=== PATIENT | male | born 1950 | race Caucasian/White ===

== ENCOUNTER 2016-09-21 21:50 | Inpatient (IN) | payer MEDICARE, MEDICAID ==
[2016-09-21] MEDS: BACITRACIN TOP OINT 15 GM TUBE TOP SCH (01:40)
[2016-09-21 21:40] VITALS: O2SAT 96
[2016-09-21] MEDS ORDERED: DIPHTH/TETANUS/ACEL PERTUSSIS (BOOSTER) 0.5 ML VIAL/PFS IM ONE ×2 (21:59→22:24)
[2016-09-21] MEDS ORDERED: ceFAZolin 2 GM PREMIX 50 ML ONE (21:59)
[2016-09-21] MEDS ORDERED: LIDOCAINE HCL 1% 50 ML VIAL INFIL ONE (22:15)
[2016-09-21] MEDS ORDERED: ceFAZolin 2 GM PREMIX 50 ML IV STA (22:24)
--- NOTE | 2016-09-21 22:25 | RADRPT ---
EXAM DATE/TIME: 09/21/2016 22:13 [facility] COMPARISON: No previous studies available for comparison. INDICATIONS : Trauma alert; fall from standing position. RADIATION DOSE: 53.40 CTDIvol (mGy) MEDICAL HISTORY : Non-responsive. SURGICAL HISTORY : Non-responsive. ENCOUNTER: Initial ACUITY: 1 day PAIN SCALE: Non-responsive LOCATION: cranial TECHNIQUE: Multiple contiguous axial images were obtained of the head. Using automated exposure control and adj ustment of the mA and/or kV according to patient size, radiation dose was kept as low as reasonably a chievable to obtain optimal diagnostic quality images. FINDINGS: CEREBRUM: The ventricles are normal for age. No evidence of midline shift, mass lesion, hemorrhage or acute in farction. No extra-axial fluid collections are seen. POSTERIOR FOSSA: The cerebellum and brainstem are intact. The 4th ventricle is midline. The cerebellopontine angle i s unremarkable. EXTRACRANIAL: The visualized portion of the orbits is intact. SKULL: The calvaria is intact. No evidence of skull fracture. CONCLUSION: Negative noncontrast head CT. No bleed or other acute intracranial abnormality. Viot Yanez MD on September 21, 2016 at 22:23 Board Certified Radiologist. This report was verified electronically.
--- NOTE | 2016-09-21 22:26 | RADRPT ---
EXAM DATE/TIME: 09/21/2016 21:57 [facility] COMPARISON: No previous studies available for comparison. INDICATIONS : Trauma alert. Fall from a standing position. MEDICAL HISTORY : None. SURGICAL HISTORY : None. ENCOUNTER: Initial ACUITY: 1 day PAIN SCORE: 10/10 LOCATION: Right shoulder. FINDINGS: No fracture or subluxation seen in the right shoulder. 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 CONCLUSION: Intact right shoulder. Vito Yanez MD on September 21, 2016 at 22:24 Board Certified Radiologist. This report was verified electronically.
[2016-09-21 22:28] LABS: I-STAT POTASSIUM 3.6 MMOL/L (3.5-4.9)
[2016-09-21 22:29] LABS: AUTOMATED NEUTROPHIL # 6.6 TH/MM3 (1.8-7.7); BASOPHIL # 0.1 TH/MM3 (0-0.2); BASOPHIL % 0.5 % (0.0-2.0); EOSINOPHIL # 0.3 TH/MM3 (0-0.4); EOSINOPHIL % 2.7 % (0.0-4.0); HEMATOCRIT 36.6 % (39.0-51.0); HEMO FLAGS DIFF FINAL; LYMPH % 22.2 % (9.0-44.0); LYMPHOCYTE # 2.3 TH/MM3 (1.0-4.8); MEAN CELL VOLUME 98.3 FL (80.0-100.0); MEAN CORPUSCULAR HEMOGLOBIN 34.6 PG (27.0-34.0); MEAN CORPUSCULAR HGB CONC 35.2 % (32.0-36.0); MONO % 9.9 % (0.0-8.0); NEUT % 64.7 % (16.0-70.0); PLATELET COUNT 193 TH/MM3 (150-450); RED BLOOD COUNT 3.72 MIL/MM3 (4.50-5.90); RED CELL DISTRIBUTION WIDTH 13.9 % (11.6-17.2); WHITE BLOOD COUNT 10.1 TH/MM3 (4.0-11.0)
[2016-09-21] MEDS ORDERED: IOHEXOL 350 MG/ML 10 ML VIAL (for RAD DIAG) IV ONE (22:32)
[2016-09-21 22:37] LABS: APTT (PATIENT) 24.7 SEC (24.3-30.1); PROTHROMBIN TIME - PATIENT 11.4 SEC (9.8-11.6)
--- NOTE | 2016-09-21 22:38 | RADRPT ---
EXAM DATE/TIME: 09/21/2016 22:13 [facility] COMPARISON: No previous studies available for comparison. INDICATIONS : Trauma alert; fall from standing position. RADIATION DOSE: 17.84 CTDIvol (mGy) MEDICAL HISTORY : Non-responsive. SURGICAL HISTORY : Non-responsive. ENCOUNTER: Initial ACUITY: 1 day PAIN SCALE: Non-responsive LOCATION: neck TECHNIQUE: Volumetric scanning of the cervical spine was performed. Multiplanar reconstructions in the sagittal, coronal and oblique axial planes were performed. Using automated exposure control and adjustment o f the mA and/or kV according to patient size, radiation dose was kept as low as reasonably achievable to obtain optimal diagnostic quality images. FINDINGS: No subluxation seen of the cervical spine. Vertebral bodies have normal height. Nonacute-appearing fr agmentation and/or hypertrophic bone seen of the tip of the odontoid. There is a suspected fracture o f the base of the odontoid that appears old and substantially healed. Severe disc space narrowing with bony bridging seen at C5/C6 and C6/C7. Large anterior syndesmophytes are seen at C4/C5. No prevertebral soft tissue swelling demonstrated. CONCLUSION: Old/chronic findings as above. No acute fracture or subluxation seen of the cervical spine. Vito Yanez MD on September 21, 2016 at 22:35 Board Certified Radiologist. This report was verified electronically.
--- NOTE | 2016-09-21 22:46 | RADRPT ---
EXAM DATE/TIME: 09/21/2016 22:18 [facility] COMPARISON: No previous studies available for comparison. INDICATIONS : Trauma alert; fall from standing position. IV CONTRAST: 95 cc Omnipaque 350 (iohexol) IV RADIATION DOSE: 8.07 CTDIvol (mGy) ; Combined studies - Thorax/Abdomen/Pelvis MEDICAL HISTORY : Non-responsive. SURGICAL HISTORY : Non-responsive. ENCOUNTER: Initial ACUITY: 1 day PAIN SCALE: Non-responsive LOCATION: cranial TECHNIQUE: Volumetric scanning of the chest was performed. Using automated exposure control and adjustment of t he mA and/or kV according to patient size, radiation dose was kept as low as reasonably achievable to obtain optimal diagnostic quality images. FINDINGS: LUNGS: Trace bibasilar atelectasis. There is mild emphysema. PLEURA: No hemothorax. No pneumothorax. MEDIASTINUM: There is no adenopathy. Heart size within normal limits. There is coronary artery calcification. AXILLAE: Within normal limits. No lymphadenopathy. SKELETAL: There are old, healed left rib fractures. No acute fracture seen of the visualized osseous structures . MISCELLANEOUS: The visualized upper abdominal organs demonstrate no acute abnormality. CONCLUSION: No evidence of acute thoracic injury. Trace atelectasis and chronic findings as above. Vito Yanez MD on September 21, 2016 at 22:42 Board Certified Radiologist. This report was verified electronically.
--- NOTE | 2016-09-21 22:48 | RADRPT ---
EXAM DATE/TIME: 09/21/2016 22:18 [facility] COMPARISON: No previous studies available for comparison. INDICATIONS : Trauma alert. Fall from standing position. IV CONTRAST: 95 cc Omnipaque 350 (iohexol) IV ORAL CONTRAST: No oral contrast ingested. RADIATION DOSE: 8.07 CTDIvol (mGy) ; Combined studies - Thorax/Abdomen/Pelvis MEDICAL HISTORY : Non-responsive. SURGICAL HISTORY : Non-responsive. ENCOUNTER: Initial ACUITY: 1 day PAIN SCALE: Non-responsive LOCATION: Abdomen TECHNIQUE: Volumetric scanning of the abdomen and pelvis was performed. Using automated exposure control and ad justment of the mA and/or kV according to patient size, radiation dose was kept as low as reasonably achievable to obtain optimal diagnostic quality images. FINDINGS: LOWER LUNGS: The visualized lower lungs are clear. LIVER: Homogeneous density without lesion. There is no dilation of the biliary tree. No calcified gallston es. SPLEEN: Normal size without lesion. PANCREAS: Within normal limits. KIDNEYS: Normal in size and shape. There is no mass, stone or hydronephrosis. ADRENAL GLANDS: Within normal limits. VASCULAR: There is no aortic aneurysm. BOWEL/MESENTERY: The stomach, small bowel, and colon demonstrate no acute abnormality. There is no free intraperitone al air or fluid. ABDOMINAL WALL: Within normal limits. RETROPERITONEUM: There is no lymphadenopathy. BLADDER: No wall thickening or mass. REPRODUCTIVE: Within normal limits. INGUINAL: There is no lymphadenopathy or hernia. MUSCULOSKELETAL: No fracture seen of the visualized osseous structures. Degenerative changes are seen of the lumbar sp ine and both sacroiliac joints. CONCLUSION: No visceral organ injury or other acute abnormality demonstrated. Vito Yanez MD on September 21, 2016 at 22:46 Board Certified Radiologist. This report was verified electronically.
[2016-09-21] MEDS ORDERED: SODIUM CHLOR 0.9% 1000 ML INJ 1,000 ML IV ONE (23:00)
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
--- NOTE | 2016-09-21 23:11 | PD ---
Physical Exam Date Seen by Provider: Sep 21, 2016 Time Seen by Provider: 23:09 Narrative Trauma alert that presents to the ED for evaluation of laceration to the head. Please refer to my attendings note for history and physical. Data Data Orders I-Stat Profile (09/21/16 21:53) I-Stat Creatinine (09/21/16 21:53) Complete Blood Count With Diff (09/21/16 21:53) Prothrombin Time / Inr (Pt) (09/21/16 21:53) Act Partial Throm Time (Ptt) (09/21/16 21:53) Type And Screen (09/21/16 21:53) Ct Brain W/O Iv Contrast(Rout) (09/21/16 21:53) Ct Cerv Spine W/O Contrast (09/21/16 21:53) Ct Abd/Pel W Iv Contrast(Rout) (09/21/16 21:53) Ct Thorax/ Chest W Iv Contrast (09/21/16 21:53) Iv Access Insert/Monitor (09/21/16 21:53) Ecg Monitoring (09/21/16 21:53) Oximetry (09/21/16 21:53) Oxygen Administration (09/21/16 21:53) Cefazolin 2 Gm Premix (Ancef 2 Gm Premix (09/21/16 21:59) Wvyt-Ply-Kqxcnv (Booster) Inj (Boostrix (09/21/16 21:59) Shoulder, Limited(2vws) (09/21/16 ) Fentanyl Inj (Fentanyl Inj) (09/21/16 22:04) Wound Care (09/21/16 22:08) Lidocaine 1% Inj (50 Ml) (Xylocaine 1% I (09/21/16 22:15) Cefazolin 2 Gm Premix (Ancef 2 Gm Premix (09/21/16 22:24) Agty-Fur-Ewixcj (Booster) Inj (Boostrix (09/21/16 22:24) Iohexol 350 Inj (Omnipaque 350 Inj) (09/21/16 22:32) Admit Order (Ed Use Only) (09/21/16 22:52) Labs Laboratory Tests Test 09/21/16 21:50 White Blood Count 10.1 TH/MM3 Red Blood Count 3.72 MIL/MM3 Hemoglobin 12.9 GM/DL Bedside Hemoglobin 13.3 G/DL Hematocrit 36.6 % Bedside Hematocrit 39.0 % Mean Corpuscular Volume 98.3 FL Mean Corpuscular Hemoglobin 34.6 PG Mean Corpuscular Hemoglobin 35.2 % Concent Red Cell Distribution Width 13.9 % Platelet Count 193 TH/MM3 Mean Platelet Volume 8.0 FL Neutrophils (%) (Auto) 64.7 % Lymphocytes (%) (Auto) 22.2 % Monocytes (%) (Auto) 9.9 % Eosinophils (%) (Auto) 2.7 % Basophils (%) (Auto) 0.5 % Neutrophils # (Auto) 6.6 TH/MM3 Lymphocytes # (Auto) 2.3 TH/MM3 Monocytes # (Auto) 1.0 TH/MM3 Eosinophils # (Auto) 0.3 TH/MM3 Basophils # (Auto) 0.1 TH/MM3 CBC Comment DIFF FINAL Differential Comment Prothrombin Time 11.4 SEC Prothromb Time International 1.0 RATIO Ratio Activated Partial 24.7 SEC Thromboplast Time Bedside Sodium 124 MMOL/L Bedside Potassium 3.6 MMOL/L Bedside Chloride 86 MMOL/L Bedside Blood Urea Nitrogen 4 MG/DL Bedside Creatinine 0.9 MG/DL Bedside Glucose 80 MG/DL Blood Type A POSITIVE Antibody Screen NEGATIVE [facility]DM Medical Record Reviewed: Yes Supervised Visit with LEONEL: No Procedures Procedure Narrative LACERATION LOCATION: Right forehead LENGTH: 8 cm NUMBER OF STITCHES/JENNI: 11 sutures REPAIR: The area of the laceration was prepped with Betadine and sterilely draped. The laceration was infiltrated with 1% xylocaine. The wound was copiously irrigated and explored without evidence of foreign body, tendon injury or neurovascular injury. The wound was closed using 4-0 prolene. This was a 1 layer repair. A sterile dressing was applied. The patient was advised to keep the dressing clean and dry. Patient tolerated the procedure well. LACERATION LOCATION: left eyebrow LENGTH: 4 cm NUMBER OF STITCHES/JENNI: 10 sutures REPAIR: The area of the laceration was prepped with Betadine and sterilely draped. The laceration was infiltrated with 1% xylocaine. The wound was copiously irrigated and explored without evidence of foreign body, tendon injury or neurovascular injury. The wound was closed using 4-0 prolene. This was a 1 layer repair. A sterile dressing was applied. The patient was advised to keep the dressing clean and dry. Patient tolerated the procedure well. Diagnosis Primary Impression: Acute alcohol intoxication Qualified Code: F10.120 - Acute alcohol intoxication, uncomplicated Additional Impressions: Hyponatremia Head injury Qualified Code: S09.90XA - Head injury, initial encounter Fall Qualified Code: W19.XXXA - Fall, initial encounter Laceration of forehead, complicated Qualified Code: S01.81XA - Laceration of forehead, complicated, initial encounter Cervical strain, acute Qualified Code: S16.1XXA - Cervical strain, acute, initial encounter Ever Yoder Sep 21, 2016 23:11
[2016-09-21] MEDS ORDERED: ENALAPRILAT 1.25 MG/ML VIAL IV PRN (23:15)
[2016-09-21] MEDS ORDERED: CHLORHEXIDINE GLUCONATE 2 % 1 PACK (2 CLOTHS) TOP PRN (23:15)
[2016-09-21] MEDS ORDERED: ONDANSETRON HCL 4 MG/2 ML VIAL IV PRN (23:15)
[2016-09-21] MEDS ORDERED: MISCELLANEOUS NURSING INFORMATION XX SCH (23:15)
[2016-09-21] MEDS ORDERED: SODIUM CHLORIDE 0.9% FLUSH 5 ML FLUSH IVF PRN (23:15)
[2016-09-21] MEDS ORDERED: MAGNESIUM HYDROXIDE SUSP 30 ML CUP PO PRN (23:15)
[2016-09-21] MEDS ORDERED: ACETAMINOPHEN 325 MG TAB PO PRN (23:15)
[2016-09-21] MEDS ORDERED: METHOCARBAMOL 500 MG TAB PO PRN (23:15)
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
[2016-09-22] VITALS (7 sets, daily range): BP systolic 90–125; BP diastolic 57–68; PULSE 60–84; RESP 14–20; TEMP 97.5–97.8; O2SAT 95–99
[2016-09-22] MEDS: ENOXAPARIN SODIUM 30 MG/0.3 ML SYRINGE SQ SCH ×2 (00:15→12:01)
[2016-09-22] MEDS: SODIUM CHLOR 0.9% 1000 ML INJ 1,000 ML IV SCH ×2 (01:40→09:21)
[2016-09-22] MEDS ORDERED: CHLORHEXIDINE GLUCONATE 2 % 1 PACK (2 CLOTHS) TOP SCH (04:00)
[2016-09-22 06:27] LABS: BICARBONATE 23.4 MEQ/L (21.0-32.0); POTASSIUM 3.7 MEQ/L (3.5-5.1)
[2016-09-22 06:32] LABS: AUTOMATED NEUTROPHIL # 6.2 TH/MM3 (1.8-7.7); BASOPHIL % 0.3 % (0.0-2.0); EOSINOPHIL # 0.2 TH/MM3 (0-0.4); EOSINOPHIL % 2.2 % (0.0-4.0); HEMATOCRIT 37.9 % (39.0-51.0); HEMO FLAGS DIFF FINAL; LYMPH % 19.9 % (9.0-44.0); LYMPHOCYTE # 1.8 TH/MM3 (1.0-4.8); MEAN CELL VOLUME 99.8 FL (80.0-100.0); MEAN CORPUSCULAR HEMOGLOBIN 34.5 PG (27.0-34.0); MEAN CORPUSCULAR HGB CONC 34.6 % (32.0-36.0); MONO % 10.2 % (0.0-8.0); NEUT % 67.4 % (16.0-70.0); PLATELET COUNT 194 TH/MM3 (150-450); RED CELL DISTRIBUTION WIDTH 14.2 % (11.6-17.2); WHITE BLOOD COUNT 9.1 TH/MM3 (4.0-11.0)
[2016-09-22] MEDS ORDERED: THIAMINE HCL 100 MG TAB PO SCH (09:00)
[2016-09-22] MEDS ORDERED: DOCUSATE SODIUM 100 MG CAP PO SCH (09:00)
[2016-09-22] MEDS ORDERED: FOLIC ACID 1 MG TAB PO SCH (09:00)
[2016-09-22] MEDS ORDERED: MULTIVITAMIN TAB PO SCH (09:00)
[2016-09-22] MEDS: BACITRACIN TOP OINT 15 GM TUBE TOP SCH (09:22)
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
[2016-09-22] MEDS ORDERED: DOCU1CAP39 PO (14:53)
[2016-09-22] MEDS ORDERED: ACET325T PO (14:53)
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
== END 2016-09-22 18:25 | disposition home or self-care (01) | DRG 86 ==
LOC: NEPI 21:50 → NEDA 22:54 → OBSVTOIN 22:54 → EDBD 22:54 → NEPFCDU 09-22 01:45
PROVIDERS: ADMIT Surgery; ATTEND Surgery
PROC: 0HQ1XZZ Repair Face Skin, External Approach (ICD-10-PCS; principal; 2016-09-21)
DX: S06.9X1A Unspecified intracranial injury with loss of consciousness of 30 minutes or less, initial encounter (principal); I42.9 Cardiomyopathy, unspecified; E87.1 Hypo-osmolality and hyponatremia; J44.9 Chronic obstructive pulmonary disease, unspecified; S01.81XA Laceration without foreign body of other part of head, initial encounter; S01.112A Laceration without foreign body of left eyelid and periocular area, initial encounter; I10 Essential (primary) hypertension; R40.2411 Glasgow coma scale score 13-15, in the field [EMT or ambulance]; F10.120 Alcohol abuse with intoxication, uncomplicated; S16.1XXA Strain of muscle, fascia and tendon at neck level, initial encounter; M19.90 Unspecified osteoarthritis, unspecified site; M47.892 Other spondylosis, cervical region; I25.10 Atherosclerotic heart disease of native coronary artery without angina pectoris; W01.198A Fall on same level from slipping, tripping and stumbling with subsequent striking against other object, initial encounter; Y90.7 Blood alcohol level of 200-239 mg/100 ml; Y92.252 Music hall as the place of occurrence of the external cause; Y93.41 Activity, dancing; Z72.0 Tobacco use; Z88.0 Allergy status to penicillin
CPT/HCPCS: 12015; 70450; 71260; 72125; 72141; 73030; 74177; 80048; 80320; 82435; 82565; 82947; 84132; 84295; 84520; 85025; 85610; 85730; 86850; 86900; 86901; 90471; 90715; 96374; 96375; 99291; G0390; J0690; J1650; J3010; J7030; Q9967